=== PATIENT | female | born 1950 | race Caucasian/White ===

== ENCOUNTER 2017-02-01 02:15 | Inpatient (IN) | payer OTHER, MEDICAID ==
[~2017-02-01] VITALS: Ht 154.9 cm; Wt 66.7 kg
[2017-02-01] VITALS (11 sets, daily range): BP systolic 95–139; BP diastolic 59–75
--- NOTE | 2017-02-01 02:32 | NUR ---
TO ER BED 1
[2017-02-01] MEDS ORDERED: KETOROLAC 30 MG/ML VIAL IVP ONE (02:35)
[2017-02-01] MEDS ORDERED: NACL 0.9% 1,000 ML IV ONE (02:35)
--- NOTE | 2017-02-01 02:40 | NUR ---
PATIENT PRESENTS TO ED WITH ABD PAIN X 2 DAYS . DENIES N/V/D; SKIN IS PINK/WARM/DRY; AAOX4 WITH EVEN AND STEADY GAIT; LUNGS CLEAR BL; HR EVEN AND REGULAR; PT DENIES ANY FEVER, CP, SOB, OR COUGH AT THIS TIME; PATIENT STATES PAIN OF 10/10 AT THIS TIME; VSS; PATIENT POSITIONED FOR COMFORT; HOB ELEVATED; BEDRAILS UP X2; BED DOWN. ER MD MADE AWARE OF PT STATUS.
[2017-02-01 03:07] LABS: HEMATOCRIT 42.1 % (36-48); MEAN CORPUSCULAR HEMOGLOBIN 31 pg (27-31); MEAN CORPUSCULAR HGB CONC 33 g/dL (33-37); MEAN CORPUSCULAR VOLUME 93 fL (80-94); PLATELET COUNT (AUTO) 311 K/uL (140-450); RED BLOOD CELL COUNT(AUTO) 4.53 MIL/uL (4.20-5.40); RED CELL DISTRIBUTION WIDTH 12.6 % (11.6-13.7)
[2017-02-01 03:14] LABS: ANION GAP 12.4 (8-16); CALCIUM 8.9 mg/dL (8.5-10.1); CARBON DIOXIDE 27.1 mmol/L (21-32); CREATININE 1.3 mg/dL (0.6-1.3); EOSINOPHILS % (MANUAL) 1 % (0-4); LYMPHOCYTES % (MANUAL) 17 % (20-46); MONOCYTES % (MANUAL) 4 % (5-12); NEUTROPHILS % (MANUAL) 78 (43-65); POTASSIUM 3.5 mmol/L (3.5-5.1)
--- NOTE | 2017-02-01 03:16 | NUR ---
PT TO CT VIA WC
[2017-02-01 03:20] LABS: ALBUMIN 3.8 g/dL (3.4-5.0); TOTAL BILIRUBIN 2.9 mg/dL (0.0-1.0); TOTAL PROTEIN, SERUM 8.3 g/dL (6.4-8.2)
--- NOTE | 2017-02-01 03:30 | NUR ---
PT RETURNED FROM CT VIA WC
[2017-02-01] MEDS ORDERED: PIPERACILLIN/TAZOBACTAM 3.375 GM in DEXTROSE 5% 50 ML IV ONE (04:15)
[2017-02-01] MEDS ORDERED: PIPERACILLIN/TAZOBACTAM 3.375 GM VIAL IV ONE (04:22)
[2017-02-01] MEDS ORDERED: NACL 0.9% 1,000 ML IV SCH (04:26)
[2017-02-01] MEDS ORDERED: ONDANSETRON 4 MG/2 ML VIAL IVP PRN ×2 (04:30→10:10)
[2017-02-01] MEDS ORDERED: ACETAMINOPHEN 325 MG TAB PO PRN (04:30)
[2017-02-01] MEDS ORDERED: MORPHINE SULFATE 2 MG/ML SYR IVP PRN (04:30)
[2017-02-01] MEDS ORDERED: METO25TE2 PO (04:40)
[2017-02-01] MEDS ORDERED: LOSA25TA22 PO (04:40)
[2017-02-01] MEDS ORDERED: ORE25 PO (04:40)
[2017-02-01] MEDS ORDERED: LORA-476 PO (04:40)
--- NOTE | 2017-02-01 05:00 | NUR ---
PATIENT ADMIT DX ACUTE APPENDICITIS PT IS AWAKE ALERT ORIENTED AMBULATORY.SKIN ASSESSMENT DONE WITH ANGÉLICA MORENO PATIENT SKIN IS INTACT.IV TO LT HAND PATENT.PLAN OF CARE DISCUSSED WITH THE PATIENT.PATIENT PLACED ON FALL PRECAUTIONS FOR SAFETY.CALL LIGHT WITHIN REACH.WILL CONTINUE TO MONITOR.
--- NOTE | 2017-02-01 05:01 | NUR ---
Patient will be admitted to care of DR RANDHAWA. Admited to TELE. Will go to room 111B. Belongings list completed. Report to ANGÉLICA MCGARRY.
[2017-02-01 05:04] LABS: INR 1.2 (0.8-1.2); PARTIAL THROMBOPLASTIN TIME 22.4 secs (22-35.6); PROTHROMBIN TIME 10.9 secs (10.8-13.4)
[2017-02-01] MEDS ORDERED: PNEUMOCOCCAL VACCINE 23 MCG/0.5 ML VIAL IMVAC SCH (05:20)
--- NOTE | 2017-02-01 05:38 | NUR ---
Patient's Plan of Care was discussed and reviewed with PC NETWORK TECHNICIAN: MALGORZATA CHILDS.
--- NOTE | 2017-02-01 06:40 | NUR ---
PATIENT IS CURRENTLY STABLE RESTING IN BED,DENIES PAIN AND DISCOMFORT.WILL CONTINUE TO MONITOR.
[2017-02-01 06:41] LABS: BILIRUBIN,URINE NEGATIVE (NEGATIVE); BLOOD, URINE 1+ (NEGATIVE); LEUKOCYTE ESTERASE ,URINE NEGATIVE (NEGATIVE); NITRITE, URINE NEGATIVE (NEGATIVE); PROTEIN,URINE 1+ (NEGATIVE); UGLUCOSE NEGATIVE (NEGATIVE)
[2017-02-01 06:46] LABS: APPEARANCE,URINE SLIGHTLY HAZY (CLEAR); COLOR,URINE YELLOW (YELLOW)
--- NOTE | 2017-02-01 07:08 | NUR ---
PT STABLE REPORT ENDORSED TO ANGÉLICA ROBERTS HE WILL RESUME CARE OF THE PATIENT.
--- NOTE | 2017-02-01 07:08 | NUR ---
ASSUMED CONTINUITY OF CARE. NO SIGNS AND SYMPTOMS OF ACUTE DISTRESS NOTED. INITIAL ASSESSMENT DONE. KEEP COMFORTABLE ON BED. EXPLAINED DIAGNOSIS, PLAN OF CARE, PAIN MANAGEMENT TEACHING, USE OF CALL LIGHT/BED/TV/BATHROOM. VERBALIZED UNDERSTANDING. CALL LIGHT WITHIN REACH.
[2017-02-01 07:37] LABS: BACTERIA,URINE OCCASSIONAL /HPF (None Seen); MUCUS,URINE 1+ /LPF (None Seen); RBC,URINE 0-5 (RARE) /HPF (0-5); SQUAMOUS EPITHELIAL CELL,UR 0-3 (FEW) /LPF (0-3 (FEW)); WBC,URINE 0-5 (RARE) /HPF (0-5)
--- NOTE | 2017-02-01 08:19 | NUR ---
Patient's Plan of Care was discussed and reviewed with SUPERINTENDENT TERMINAL: SHIRLEY Mckenzie
--- NOTE | 2017-02-01 08:35 | NUR ---
DR. SOLIS CALLED AND ORDERED TO PREPARE CONSENT FOR LAPAROSCOPIC APPENDECTOMY AT 0930. DR. SOLIS SAID THAT HE WILL COME AND EXPLAINED PROCEDURE AND ASKED PT. TO SIGN CONSENT. INFORMED CHARGE NURSE MILA CHRISTENSEN.
--- NOTE | 2017-02-01 09:18 | NUR ---
OR NURSE CAME AND ANHYDROUS AMMONIA PRODUCTION SUPERVISOR PT. FOR PROCEDURE. WENT TO OR VIA GURNEY. AWAKE, ALERT, AND ORIENTED X4. IN STABLE CONDITION. INFORMED ANDREA CASTORENA AND CHARGE NURSE MILA CHRISTENSEN.
[2017-02-01] MEDS ORDERED: BUPIVACAINE-MPF/EPI 0.25% 30 ML VIAL INJ ONE (09:23)
[2017-02-01] MEDS: LOSARTAN 25 MG TAB PO SCH (10:00)
[2017-02-01] MEDS: HYDROCHLOROTHIAZIDE 25 MG TAB PO SCH (10:00)
[2017-02-01] MEDS: METOPROLOL SUCCINATE 50 MG TABER PO SCH (10:00)
[2017-02-01] MEDS ORDERED: HYDROmorphone 1 MG/ML AMP IVP PRN (10:10)
--- NOTE | 2017-02-01 12:25 | NUR ---
RECEIVED FROM OR VIA [employer] Reviewed. IN STABLE CONDITION. KEEP COMFORTABLE ON BED. EXPLAINED DIAGNOSIS, POST-OP CARE, CARE OF MICHI DRAIN, INCISION CARE, AMBULATION ENCOURAGEMENT, PAIN MANAGEMENT TEACHING, DIET, USE OF CALL LIGHT/BED/TV/BATHROOM. VERBALIZED UNDERSTANDING. CALL LIGHT WITHIN REACH.
[2017-02-01] MEDS ORDERED: PIPERACILLIN/TAZOBACTAM 2.25 GM in DEXTROSE 5% 50 ML IV SCH (13:00)
[2017-02-01] MEDS: PIPER/TAZO 2.25GM/D5W PREMIX 50 ML IV SCH ×2 (13:13→21:10)
[2017-02-01] MEDS: DEXT 5% / NACL 0.45% 1,000 ML IV SCH ×2 (15:12→21:20)
--- NOTE | 2017-02-01 15:20 | NUR ---
WATCHING TV. NO DISCOMFORT NOTICED. CALL LIGHT WITHIN REACH.
[2017-02-01] MEDS: LORazepam 1 MG TAB PO PRN (17:32)
--- NOTE | 2017-02-01 19:21 | NUR ---
BEDSIDE REPORT GIVEN TO MALGORZATA HOWARD. IVF INFUSING WELL. IN STABLE CONDITION.
--- NOTE | 2017-02-01 19:22 | NUR ---
PATIENT IS CURRENTLY AWAKE ALERT RESTING IN BED DENIES ANY NAUSEA OR PAIN AT THIS TIME PT DENIES FEELING ANXIOUS WELL.SHE IS RESTING IN BED.PATIENT HAS ABD INCISION X3 TO ABDOMEN TWO OF THE INCISION ARE SEALED WITH CLEAR TRANSPARENT GLUE LIKE DRESSING AND THE THIRD HAS A DRESSING TO LOWER MID ABDOMEN AND HAS A MICHI ATTACHED.MINIMAL DRAINAGE NOTED TO MICHI .PT VITAL SIGNS TAKEN AND PT IS AFEBRILE.PT IS DUE TO VOID WELL.WILL CONTINUE TO OBSERVE.
--- NOTE | 2017-02-01 20:00 | NUR ---
Patient's Plan of Care was discussed and reviewed with HYDROCHLORIC AREA SUPERVISOR: MALGORZATA CHILDS
--- NOTE | 2017-02-01 20:35 | NUR ---
PT WAS ASSISTED TO THE BATHROOM.PATIENT VOIDED 300ML OF MARLEY COLOR URINE.THEN SHE WAS ASSISTED BACK TO BED.CALL LIGHT WITHIN REACH WILL CONTINUE TO MONITOR.
[2017-02-01] MEDS: HYDROcodone/APAP 5/325 MG 1 TAB TAB PO PRN (21:35)
--- NOTE | 2017-02-01 22:05 | NUR ---
PATIENT WATCHING TV QUIETLY CALL LIGHT WITHIN REACH WILL CONTINUE TO MONITOR.
[2017-02-02] VITALS: BP 115/64
--- NOTE | 2017-02-02 | NUR ---
PATIENT IS CURRENTLY RESTING IN BED NEEDS CONTINUE TO BE MET.NO PAIN OR DISCOMFORT NOTED AT THIS TIME.IVF INFUSING WELL,IV SITE PATENT.PATIENT CONTINUES TO WEAR THE SCD'S TO BLE FOR DVT PROPHALAXIS. WILL CONTINUE TO OBSERVE.
[2017-02-02] MEDS: DEXT 5% / NACL 0.45% 1,000 ML IV SCH (02:00)
[2017-02-02] MEDS: PIPER/TAZO 2.25GM/D5W PREMIX 50 ML IV SCH ×4 (02:01→20:12)
--- NOTE | 2017-02-02 03:37 | NUR ---
PATIENT IS CURRENTLY SLEEPING IVF INFUSING WELL IV SITE PATENT,NO PAIN OR DISCOMFORT AT THIS TIME.NEEDS CONTINUE TO BE MET.WILL CONTINUE TO MONITOR.
[2017-02-02 04:52] VITALS: BP 93/65
[2017-02-02 06:03] LABS: HEMATOCRIT 32.6 % (36-48); HEMOGLOBIN 11.2 g/dL (12.0-16.0); MEAN CORPUSCULAR HEMOGLOBIN 31 pg (27-31); MEAN CORPUSCULAR HGB CONC 34 g/dL (33-37); MEAN CORPUSCULAR VOLUME 92 fL (80-94); PLATELET COUNT (AUTO) 227 K/uL (140-450); RED BLOOD CELL COUNT(AUTO) 3.55 MIL/uL (4.20-5.40); RED CELL DISTRIBUTION WIDTH 12.4 % (11.6-13.7); WHITE BLOOD COUNT (AUTO) 22.7 K/uL (4.8-10.8)
[2017-02-02 06:20] LABS: ANION GAP 9.8 (8-16); CALCIUM 7.8 mg/dL (8.5-10.1); CARBON DIOXIDE 25.7 mmol/L (21-32); POTASSIUM 3.5 mmol/L (3.5-5.1)
[2017-02-02 06:21] LABS: MAGNESIUM 1.7 mg/dL (1.8-2.4); PHOSPHORUS 2.9 mg/dL (2.5-4.9)
--- NOTE | 2017-02-02 06:21 | NUR ---
PT SLEEPING COMFORTABLY IN BED IN NO DISTRESS WILL CONTINUE TO MONITOR.IVF INFUSING WELL IV SITE PATENT.CALL LIGHT WITHIN REACH.
[2017-02-02 06:50] LABS: BAND % (MANUAL) 2 % (0-8); LYMPHOCYTES % (MANUAL) 18 % (20-46); MONOCYTES % (MANUAL) 1 % (5-12); NEUTROPHILS % (MANUAL) 79 (43-65)
--- NOTE | 2017-02-02 07:07 | NUR ---
PT STABLE REPORT ENDORSED TO ANGÉLICA BLAS SHE WILL RESUME CARE OF THE PATIENT.
--- NOTE | 2017-02-02 07:08 | NUR ---
RECEIVED PT FROM SHAHRAM MCGARRY AWAKE AND LYING ON BED USING HER CELLPHONE, AAOX4, NO S/S OF RESPIRATORY DISTRESS OR DISCOMFORT. WITH IV ACCESS ON LEFT WRIST 22G INFUSING FLUIDS WELL. WITH THREE ABDOMINAL INCISIONS, TWO OF WHICH ARE WITH TRANSPARENT GLUE, OTHER ONE AT LOWER ABDOMEN COVERED WITH DRY INTACT DRESSING CONNECTED TO MICHI DRAIN WITH 2ML SEROSANGUINEOUS DRAINAGE. NO COMPLAINTS OF PAIN AT THIS TIME. CALL LIGHT WITHIN REACH, WILL CONTINUE TO MONITOR.
[2017-02-02 08:00] VITALS: BP 121/73
[2017-02-02] MEDS: HYDROCHLOROTHIAZIDE 25 MG TAB PO SCH (08:39)
[2017-02-02] MEDS: ATORVASTATIN 20 MG TAB PO SCH (08:39)
[2017-02-02] MEDS: ECOTRIN 81 MG TABEC PO SCH (08:39)
[2017-02-02] MEDS: LOSARTAN 25 MG TAB PO SCH (08:39)
[2017-02-02] MEDS: METOPROLOL SUCCINATE 50 MG TABER PO SCH (08:40)
[2017-02-02] MEDS: LORazepam 1 MG TAB PO PRN (08:46)
--- NOTE | 2017-02-02 08:48 | NUR ---
DUE MEDS GIVEN, PT TOLERATED WELL. DR. CORDOBA AT BEDSIDE, WILL CARRY OUT NEW ORDERS.
[2017-02-02] MEDS ORDERED: MAG SULF 2000 MG/WATER PREMIX 50 ML IV SCH (09:00)
--- NOTE | 2017-02-02 09:15 | NUR ---
PATIENT HAS BEEN SCREENED AND CATEGORIZED MODERATE NUTRITION RISK. PATIENT WILL BE SEEN WITHIN 3-5 DAYS OF ADMISSION. 02/04/17 - 02/06/17 RICH KELLER MBA, RD
--- NOTE | 2017-02-02 10:27 | NUR ---
MICHI DRAIN REMOVED WITH 20 ML SEROSANGUINEOUS DRAINAGE. PT TOLERATED WELL.
--- NOTE | 2017-02-02 12:28 | NUR ---
PT AWAKE SITTING ON CHAIR EATING LUNCH, HAS GOOD APPETITE. CALL LIGHT WITHIN REACH, WILL CONTINUE TO MONITOR.
[2017-02-02] MEDS ORDERED: POTASSIUM CHLORIDE 10 MEQ TABER PO SCH (13:00)
--- NOTE | 2017-02-02 13:45 | NUR ---
ASSISTED PT TO AMBULATE AROUND THE HALLWAYS, TOLERATED WELL.
--- NOTE | 2017-02-02 15:10 | NUR ---
PT LYING ON BED WITH RELATIVES AT BEDSIDE. ALL NEEDS MET, WILL CONTINUE TO MONITOR.
[2017-02-02 15:57] VITALS: BP 136/75
--- NOTE | 2017-02-02 17:48 | NUR ---
PT AWAKE WATCHING TV, ALL NEEDS MET AT THIS TIME. CALL LIGHT WITHIN REACH, WILL CONTINUE TO MONITOR.
--- NOTE | 2017-02-02 19:08 | NUR ---
ENDORSED PT TO MALGORZATA, FAMILY MEDICINE PHYSICIAN IN STABLE CONDITION FOR CONTINUITY OF CARE
--- NOTE | 2017-02-02 19:09 | NUR ---
PATIENT IS CURRENTLY RESTING IN BED AWAKE ALERT ORIENTED CURRENTLY WATCHING TV DENIES PAIN.SURGICAL SITES TO ABDOMEN x2 SAMMY ARE CLOSED WITH CLEAR GLUE LIKE DRESSING SLIGHT PURPLISH DISCOLORATION NOTED AROUND SURGICAL INCISIONS X2 NO S/S OF INFECTION NOTED. THIRD SURGICAL SITE TO MID LOWER ABDOMEN COVERED WITH A SMALL DRESSING AND REMAINS DRY AND INTACT AT THIS TIME.PATIENT ENCOURAGED TO AMBULATE AND TO CONTINUE TO USE THE INCENTIVE SPIROMETER BREATHING EXERCISES PT VERBALIZES UNDERSTANDING.CALL LIGHT WITHIN REACH.
[2017-02-02 20:00] VITALS: BP 140/84
[2017-02-02] MEDS: HYDROcodone/APAP 5/325 MG 1 TAB TAB PO PRN (20:23)
--- NOTE | 2017-02-02 20:25 | NUR ---
PATIENT IS CURRENTLY WALKING AROUND IN THE HALLWAY AT THIS TIME.TOLERATES ACTIVITY WELL FALL PREC IMPLEMENTED CONTINUES TO WEAR YELLOW NON SKID SLIPPERS.WILL CONTINUE TO MONITOR.
--- NOTE | 2017-02-02 22:00 | NUR ---
Patient's Plan of Care was discussed and reviewed with NEEDLE STRAIGHTENER: MALGORZATA CHILDS
--- NOTE | 2017-02-03 00:10 | NUR ---
PATIENT SLEEPING COMFORTABLY IN BED IN NO DISTRESS WILL CONTINUE TO MONITOR.
[2017-02-03 00:12] VITALS: BP 126/70
--- NOTE | 2017-02-03 03:15 | NUR ---
PATIENT IS CURRENTLY RESTING IN BED SLEEPING,CONTINUES TO BE MONITORED,CALL LIGHT WITHIN REACH.
[2017-02-03] MEDS: PIPER/TAZO 2.25GM/D5W PREMIX 50 ML IV SCH ×3 (04:19→20:47)
[2017-02-03 06:01] LABS: BASOPHILS # (AUTO) 0.1 K/uL (0.00-0.22); BASOPHILS % (AUTO) 0.7 % (0.0-2.0); EOSINOPHILS # (AUTO) 0.3 K/uL (0-0.4); EOSINOPHILS % (AUTO) 1.7 % (0.0-4.0); HEMATOCRIT 36.1 % (36-48); HEMOGLOBIN 12.1 g/dL (12.0-16.0); LYMPHOCYTES # (AUTO) 3.8 K/uL (2.5-16.5); LYMPHOCYTES % (AUTO) 22.6 % (20.5-51.1); MEAN CORPUSCULAR HEMOGLOBIN 31 pg (27-31); MEAN CORPUSCULAR HGB CONC 33 g/dL (33-37); MEAN CORPUSCULAR VOLUME 94 fL (80-94); MONOCYTES # (AUTO) 0.9 K/uL (0.8-1.0); MONOCYTES % (AUTO) 5.3 % (1.7-9.3); NEUTROPHILS # (AUTO) 11.9 K/uL (1.8-7.7); NEUTROPHILS % (AUTO) 69.7 % (42.2-75.2); PLATELET COUNT (AUTO) 249 K/uL (140-450); RED BLOOD CELL COUNT(AUTO) 3.86 MIL/uL (4.20-5.40); RED CELL DISTRIBUTION WIDTH 12.3 % (11.6-13.7)
--- NOTE | 2017-02-03 06:15 | NUR ---
PATIENT IS AWAKE ALERT ORIENTED RESTING IN BED DENIES PAIN ENCOURAGED AND EDUCATED TO USE THE INCENTIVE SPIROMETER PT VERBALIZES UNDERSTANDING.
[2017-02-03 06:21] LABS: ANION GAP 13.2 (8-16); CARBON DIOXIDE 26.1 mmol/L (21-32); CREATININE 1.1 mg/dL (0.6-1.3); POTASSIUM 3.3 mmol/L (3.5-5.1)
[2017-02-03 06:30] LABS: MAGNESIUM 1.8 mg/dL (1.8-2.4); PHOSPHORUS 2.5 mg/dL (2.5-4.9)
--- NOTE | 2017-02-03 07:20 | NUR ---
RECEIVED REPORT FROM THE MANAGER ICU NURSE AT BEDSIDE FOR CONTINUITY OF CARE. PT IS AWAKE AND SITTING IN THE CHAIR NEXT TO HER BED. PT IS AAOX4. AMBULATING WELL. NO SIGNS OF DISTRESS. NO COMPLAINTS OF PAIN. STATED HER LAST BM WAS YESTERDAY, LOOSE STOOLS. INCENTIVE SPIROMETER AT BEDSIDE. ENCOURAGED HER TO USE THAT REGULARLY. IV ON L WRIST 22G, SL. WILL BE BACK TO GET HER VS.
--- NOTE | 2017-02-03 07:50 | NUR ---
PT IS EATING HER BREAKFAST. I INTERRUPTED TO GET HER V/S. BP WAS SLIGHTLY HIGH THIS MORNING 164/99. PT DOES HAVE BP MEDS THIS MORNING.WILL ADMINISTER SOON. ASSESSED HER ABDOMEN. 3 INCISIONS. 2 DERMABOND AND 1 SMALL DRESSING INTACT AND DRY. NO PAIN. UPDATED BOARD. WILL CONTINUE TO MONITOR PT.
[2017-02-03 08:00] VITALS: BP 164/99
[2017-02-03] MEDS: METOPROLOL SUCCINATE 50 MG TABER PO SCH (09:13)
[2017-02-03] MEDS: LOSARTAN 25 MG TAB PO SCH (09:13)
[2017-02-03] MEDS: ECOTRIN 81 MG TABEC PO SCH (09:13)
[2017-02-03] MEDS: ATORVASTATIN 20 MG TAB PO SCH (09:13)
[2017-02-03] MEDS: HYDROCHLOROTHIAZIDE 25 MG TAB PO SCH (09:13)
--- NOTE | 2017-02-03 09:15 | NUR ---
ADMINISTERED MORNING MEDS. PT TOLERATED WELL. PT IS AMBULATING AROUND THE ROOM, TALKING ON THE PHONE. WILL CONTINUE TO MONITOR PT.
--- NOTE | 2017-02-03 11:00 | NUR ---
PT RESTING, WATCHING TV. NO SIGNS OF DISTRESS. NO COMPLAINTS. WILL CONTINUE TO MONITOR PT.
[2017-02-03] MEDS: metroNIDAZOLE 500 MG/NS PREMIX 100 ML IV SCH ×2 (13:10→21:33)
--- NOTE | 2017-02-03 13:10 | NUR ---
IV INFILTRATED. LEAKING FROM THE SIDE. I D/C'D IV AND STARTED A NEW ONE IN THE R HAND 22G. PT TOLERATED WELL. WILL CONTINUE TO MONITOR PT.
--- NOTE | 2017-02-03 13:15 | NUR ---
ADMINISTERED FLAGYL. PT IS TOLERATING WELL. WILL CONTINUE TO MONITOR.
[2017-02-03] MEDS ORDERED: POTASSIUM CHLORIDE 10 MEQ TABER PO SCH ×2 (13:33→13:49)
--- NOTE | 2017-02-03 14:15 | NUR ---
PT IS RESTING IN BED. ADMINISTERED K-DUR ORDERED. DID WOUND CARE ORDERED BY DR. SOLIS. CLEAN SURGICAL INCISION WITH BETADINE AND LEAVE REGULATORY AFFAIRS CONSULTANT Q DAY. PT TOLERATED WELL.
[2017-02-03 16:00] VITALS: BP 147/71
--- NOTE | 2017-02-03 16:01 | NUR ---
PT IS SITTING IN BED, READING HER MAGAZINE. NO COMPLAINTS. IV SL. ALL NEEDS MET. WILL CONTINUE TO MONITOR PT.
--- NOTE | 2017-02-03 17:50 | NUR ---
PT SITTING IN A CHAIR NEXT TO BED. EATING DINNER. NO COMPLAINTS. WILL CONTINUE TO MONITOR PT.
--- NOTE | 2017-02-03 19:15 | NUR ---
ENDORSED PT TO THE TUB RIDER NURSE AT BEDSIDE FOR CONTINUITY OF CARE. PT IS IN STABLE CONDITION.
--- NOTE | 2017-02-03 19:16 | NUR ---
RECD. RESTING IN BED, AWAKE, A/OX4. RESPIRATION EVEN AND UNLABORED. IV SALINE LOCK AT THE RIGHT HAND G 22, PATENT AND INTACT. INCISION IN THE ABDOMEN (3) OPEN TO AIR, ALL DRY AND INTACT. DENIES PAIN 0/10. STATED PAIN IS ONLY WHEN SHE WALKED. AMBULATING OCCASIONALLY IN THE HALLWAY. USES INCENTIVE SPIROMETER. PLAN OF CARE FOR THE SHIFT DISCUSSED. VERBALIZED UNDERSTANDING.
--- NOTE | 2017-02-03 20:00 | NUR ---
Patient's Plan of Care was discussed and reviewed with PROGRAMMING COORDINATOR: AKIKO NIETO
--- NOTE | 2017-02-03 21:00 | NUR ---
STILL AWAKE, WATCHING TV.
[2017-02-04] VITALS: BP 132/73
--- NOTE | 2017-02-04 | NUR ---
SLEEPING COMFORTABLY IN BED.
[2017-02-04] MEDS: PIPER/TAZO 2.25GM/D5W PREMIX 50 ML IV SCH ×2 (04:20→12:00)
[2017-02-04] MEDS: metroNIDAZOLE 500 MG/NS PREMIX 100 ML IV SCH ×2 (04:57→12:58)
[2017-02-04 07:00] LABS: ANION GAP 11.6 (8-16); CALCIUM 8.2 mg/dL (8.5-10.1); CARBON DIOXIDE 27.4 mmol/L (21-32)
[2017-02-04 07:04] LABS: BASOPHILS # (AUTO) 0.1 K/uL (0.00-0.22); BASOPHILS % (AUTO) 0.9 % (0.0-2.0); EOSINOPHILS # (AUTO) 0.6 K/uL (0-0.4); EOSINOPHILS % (AUTO) 4.2 % (0.0-4.0); HEMOGLOBIN 12.1 g/dL (12.0-16.0); LYMPHOCYTES # (AUTO) 4.6 K/uL (2.5-16.5); LYMPHOCYTES % (AUTO) 31.7 % (20.5-51.1); MEAN CORPUSCULAR HEMOGLOBIN 32 pg (27-31); MEAN CORPUSCULAR HGB CONC 35 g/dL (33-37); MEAN CORPUSCULAR VOLUME 92 fL (80-94); MONOCYTES # (AUTO) 1.1 K/uL (0.8-1.0); MONOCYTES % (AUTO) 7.4 % (1.7-9.3); NEUTROPHILS # (AUTO) 8.2 K/uL (1.8-7.7); NEUTROPHILS % (AUTO) 55.8 % (42.2-75.2); PLATELET COUNT (AUTO) 295 K/uL (140-450); RED BLOOD CELL COUNT(AUTO) 3.81 MIL/uL (4.20-5.40); WHITE BLOOD COUNT (AUTO) 14.6 K/uL (4.8-10.8)
[2017-02-04 07:08] LABS: ALBUMIN 2.7 g/dL (3.4-5.0); MAGNESIUM 1.6 mg/dL (1.8-2.4); PHOSPHORUS 4.4 mg/dL (2.5-4.9)
--- NOTE | 2017-02-04 07:15 | NUR ---
AWAKE, SITTING ON BED, RESPIRATION EVEN AND UNLABORED. NO COMPLAINT OF ABDOMINAL PAIN DURING SHIFT. CONDITION REMAIN STABLE. ENDORSED TO ANGÉLICA RODRIGUEZ FOR CONTINUITY OF CARE.
--- NOTE | 2017-02-04 07:20 | NUR ---
RECEIVED REPORT FROM DRY BOX TENDER ASSISTANT PROFESSOR OF COMMUNICATION. NO S/S OF ACUTE CARDIAC/RESPIRATORY DISTRESS OR DISCOMFORT. SAFETY MEASURES IN PLACE, CALL LIGHT WITHIN REACH. WILL CONTINUE PLAN OF CARE AND CONTINUE TO MONITOR.
[2017-02-04 08:00] VITALS: BP 146/92
[2017-02-04] MEDS: ATORVASTATIN 20 MG TAB PO SCH (08:54)
[2017-02-04] MEDS: LOSARTAN 25 MG TAB PO SCH (08:54)
[2017-02-04] MEDS: HYDROCHLOROTHIAZIDE 25 MG TAB PO SCH (08:54)
[2017-02-04] MEDS: METOPROLOL SUCCINATE 50 MG TABER PO SCH (08:55)
[2017-02-04] MEDS: ECOTRIN 81 MG TABEC PO SCH (08:55)
--- NOTE | 2017-02-04 09:15 | NUR ---
PT Notes Per nursing patient already up and ambulating indep per KIESHA Collier, spoke with Dr. Oliveira and aware of patient ambulating already, and will d/c PT order. Will await D/C order.
[2017-02-04] MEDS ORDERED: HYDROmorphone PFS 2 MG/ML SYR ONE (09:16)
[2017-02-04] MEDS ORDERED: fentaNYL 0.05 MG/ML VIAL ONE (09:16)
--- NOTE | 2017-02-04 10:00 | NUR ---
PT TOLERATED AM MEDS WELL. PT SEEN BY DR WIGGINS. NO S/S OF ACUTE DISTRESS OR DISCOMFORT. CALL LIGHT WITHIN REACH, WILL CONTINUE TO MONITOR.
[2017-02-04] MEDS ORDERED: KCL 20 MEQ/WATER INJ PREMIX 200 ML IV SCH (11:14)
[2017-02-04] MEDS ORDERED: MAGNESIUM OXIDE 400 MG TAB PO SCH (11:34)
[2017-02-04] MEDS ORDERED: LACT1.4C PO (11:40)
[2017-02-04] MEDS ORDERED: ASPI81TA28 PO (11:40)
[2017-02-04] MEDS ORDERED: ATOR20TA40 PO (11:40)
[2017-02-04] MEDS ORDERED: METR500T1 PO (11:40)
[2017-02-04] MEDS ORDERED: CIPR500T4 PO (11:40)
[2017-02-04] MEDS ORDERED: POTASSIUM CHLORIDE 40 MEQ, LIDOCAINE 1% 25 MG in NACL 0.9% 250 ML IV SCH (12:00)
[2017-02-04] MEDS ORDERED: POTASSIUM CHLORIDE 10 MEQ TABER PO SCH (12:02)
[2017-02-04] MEDS ORDERED: POTASSIUM CHLORIDE 10 MEQ TABER PO ONE (12:10)
--- NOTE | 2017-02-04 12:30 | NUR ---
PT EAGER TO GO HOME. PT TOLERATING IVPB ANTIBIOTIC AND KCL PO WELL. NO S/S OF ACUTE DISTRESS OR DISCOMFORT. CALL LIGHT WITHIN REACH, WILL CONTINUE TO MONITOR.
--- NOTE | 2017-02-04 14:27 | NUR ---
PT RESTING IN BED, AWAKE. NO S/S OF ACUTE DISTRESS OR DISCOMFORT. CALL LIGHT WITHIN REACH, WILL CONTINUE TO MONITOR.
[2017-02-04 15:18] LABS: ANION GAP 11.2 (8-16); CALCIUM 8.5 mg/dL (8.5-10.1); CARBON DIOXIDE 28.6 mmol/L (21-32); CREATININE 1.1 mg/dL (0.6-1.3); POTASSIUM 3.8 mmol/L (3.5-5.1)
[2017-02-04 16:00] VITALS: BP 130/71
--- NOTE | 2017-02-04 16:35 | NUR ---
DISCHARGE INSTRUCTIONS PROVIDED, PT VERBALIZED UNDERSTANDING. DISCHARGE PAPERWORK SIGNED, PROVIDED A COPY. REMOVED ARM BANDS, IV REMOVED AND INTACT. PT HAS NO S/S OF ACUTE DISTRESS OR DISCOMFORT. PT IN STABLE CONDITION. PT WHEELCHAIRED TO FRONT LOBBY TO BE PICKED UP BY PT'S SISTER.
== END 2017-02-04 16:35 | disposition home or self-care (01) | DRG 853 ==
LOC: MED 02:15 → MTU 04:32
PROVIDERS: ADMIT Family Medicine; ATTEND Family Medicine
PROC: 3E1M38Z Irrigation of Peritoneal Cavity using Irrigating Substance, Percutaneous Approach (ICD-10-PCS; 2017-02-01)
PROC: 0DTJ4ZZ Resection of Appendix, Percutaneous Endoscopic Approach (ICD-10-PCS; principal; 2017-02-01 09:30)
DX: A41.9 Sepsis, unspecified organism (principal); K35.2 Acute appendicitis with generalized peritonitis; N17.0 Acute kidney failure with tubular necrosis; K82.8 Other specified diseases of gallbladder; K57.30 Diverticulosis of large intestine without perforation or abscess without bleeding; I10 Essential (primary) hypertension; I16.0 Hypertensive urgency; F41.9 Anxiety disorder, unspecified; E83.42 Hypomagnesemia; I70.209 Unspecified atherosclerosis of native arteries of extremities, unspecified extremity; D64.89 Other specified anemias; E87.6 Hypokalemia; E66.3 Overweight; Z53.29 Procedure and treatment not carried out because of patient's decision for other reasons; Z68.27 Body mass index [BMI] 27.0-27.9, adult; Z79.899 Other long term (current) drug therapy
CPT/HCPCS: 36415; 71010; 80048; 80053; 81001; 82040; 83690; 83735; 84100; 85025; 85610; 85730; 86886; 86900; 86901; 87040; 87070; 87075; 87081; 87086; 87186; 88304; 90732; 93005; 96361; 96365; 96375; 99285; J1170; J1885; J2001; J2270; J2543; J3010; J3475; J3480; J3490; J7030; J7060